=== PATIENT | female | born 1950 | race African-American/Black ===

== ENCOUNTER → 2018-01-21 | Outpatient (CLI) | payer OTHER ==
[~2018-01-21] MED LIST: FLEXERIL PO; MOBIC7.5 MG PO
== END ==
LOC: NUC 09:50
DX: Z13.820 Encounter for screening for osteoporosis (principal); E11.9 Type 2 diabetes mellitus without complications; I10 Essential (primary) hypertension; E78.00 Pure hypercholesterolemia, unspecified; Z78.0 Asymptomatic menopausal state; Z88.5 Allergy status to narcotic agent

== ENCOUNTER → 2019-01-21 | Outpatient (CLI) | payer OTHER | LOC: ULTRA 10:47 | DX: M79.89 Other specified soft tissue disorders (principal); M79.605 Pain in left leg ==

== ENCOUNTER → 2019-05-07 | Outpatient (CLI) | payer OTHER ==
--- NOTE | 2019-05-09 15:07 | PATH ---
[facility] [address] [address] PATHOLOGY RPT PROCEDURE Name: CHARLENE PARKER Room #: REG [facility] M..#: [id number] Admission: 05/07/19 Date of : 46 Discharge: Report #: [id number] Path Case #: [id number] [facility] Accession Number: [id number] . 01 Material submitted: . PART A: breast - LEFT BREAST 2:00 6CMFN. Modifiers: left, 2:00 PART B: breast - LEFT BREAST 3:00 6CMFN. Modifiers: left, 3:00 . 01 Clinical history: . A. Left breast mass B. Second left breast mass . 02 Diagnosis: A. Breast, left breast 2:00 6.0 cm from nipple, needle core biopsy: - Cystic papillary apocrine metaplasia. - Background breast tissue showing proliferative fibrocystic changes. - Negative for atypia or malignancy. . B. Breast, left breast 3:00 6.0 cm from nipple, needle core biopsy: - Proliferative fibrocystic changes associated with dense stromal fibrosis, few dilated ducts, focal adenosis along with extensive columnar cell hyperplasia. - Negative for atypia or malignancy. . (IUV:mml; 05/08/2019) QLM 05/08/2019 1259 Local . 02 Comment: Dr. Ingrid Barrett has seen a client support representative slide of the needle core biopsy tissues and concurs with my diagnosis. . (IUV:mml; 05/08/2019) . 02 Electronically signed: . Deisi Jc MD, Pathologist NPI- [id number] . 01 Gross description: . A. The specimen is received in formalin, labeled "Charlene Parker, left breast 2:00 6 cmFN" and consists of 4 needle cores of yellow orange fibroadipose tissue measuring between 2.3 cm and 2.9 cm in length and 0.3-0.4 cm each in diameter which are entirely submitted in A1-A3. The specimen was collected on 05/07/2019 at 1:15 PM with no time in formalin provided. The cold ischemic time is unknown and the time out of formalin is 11:50 PM on 05/07/2019 . B. The specimen is received in formalin, labeled "Charlene Parker, 3:[address] [address] PATHOLOGY RPT PROCEDURE Name: CHARLENE PARKER Courtney Room #: REG CLI Lana#: [id number] Admission: 05/07/19 Date of : 46 Discharge: Report #: [id number] Path Case #: [id number] left breast core" and consists of 4 yellow-pink needle cores measuring between 0.7 cm and 2.3 cm in length and 0.1-0.2 cm each in diameter. They are entirely submitted in B1-B2. The specimen was collected on 05/07/2019 at 1:15 PM with no time in formalin provided. The cold ischemic time is unknown and the time out of formalin is 11:50 PM on 05/07/2019. (SDY; 05/07/2019) SYU/SYU 05/07/2019 1702 Local . 02 Pathologist provided ICD-10: N60.12, N60.82, N60.32, N62 . 02 CPT . 001618, [id number] Specimen Comment: A courtesy copy of this report has been sent to [phone] Specimen Comment: [phone] Specimen Comment: Report sent to ,DR OLIVA / DR QUIROZ Performed at: [address] [facility], [place], [place] [id number] MD Marshall Short MD Phone: [phone] Performed at: [address] [facility] [id number] MD Deisi Jc MD Phone: [phone]
== END | disposition home or self-care (01) ==
LOC: ULTRA 05-01 09:57
DX: N63.21 Unspecified lump in the left breast, upper outer quadrant (principal); N60.12 Diffuse cystic mastopathy of left breast; N60.82 Other benign mammary dysplasias of left breast; N62 Hypertrophy of breast

== ENCOUNTER → 2019-12-16 | Outpatient (CLI) | payer OTHER | LOC: BC 08:06 | PROVIDERS: ATTEND Internal Medicine | DX: R92.8 Other abnormal and inconclusive findings on diagnostic imaging of breast (principal) ==

== ENCOUNTER → 2020-06-15 | Outpatient (CLI) | payer OTHER | LOC: RAD 09:51 | PROVIDERS: ATTEND Internal Medicine | DX: Z12.31 Encounter for screening mammogram for malignant neoplasm of breast (principal) ==

== ENCOUNTER → 2021-06-17 | Outpatient (CLI) | payer OTHER | LOC: BC 09:49 | PROVIDERS: ATTEND Internal Medicine | DX: Z12.31 Encounter for screening mammogram for malignant neoplasm of breast (principal) ==